=== PATIENT | female | born 1960 | race Two or more races ===

== ENCOUNTER 2023-10-08 06:57 | Day surgery (SDC) | payer OTHER ==
[~2023-10-08] VITALS: Ht 165.1 cm; Wt 72.6 kg
[~2023-10-08 06:57] MED LIST: AMITRIPTYLINE H25 MG PO; B12 ACTIVE1000 MCG PO; CIDAFLEX TABLE1 EACH PO; EVISTA60 MG PO; FOLIC ACID0.8 M1 PO; LEVOTHYROXINE25 MCG PO; MAGNESIUM250 M2 PO; MONTELUKAST SOD10 MG PO; VITAL-D RX TAB1 EACH PO; WELLBUTRIN XL300 MG PO; ZYRTEC10 M3 PO
[2023-10-08] MEDS ORDERED: TRAM1TAB98 PO (15:03)
[2023-10-08] MEDS ORDERED: CEPHALEXIN500 M1 PO (15:03)
== END 2023-10-08 16:45 | disposition home or self-care (01) ==
LOC: CIR.AMB 06:57
PROVIDERS: ATTEND Surgery
DX: R15.9 Full incontinence of feces (principal); I10 Essential (primary) hypertension; Z20.822 Contact with and (suspected) exposure to COVID-19
CPT/HCPCS: 64581; 95972; C1778

== ENCOUNTER 2023-10-20 05:43 | Day surgery (SDC) | payer OTHER ==
[~2023-10-20 05:43] MED LIST changes: +CEPHALEXIN500 M1 PO; +TRAM1TAB98 PO
[2023-10-20] MEDS ORDERED: CEFAZOLIN SODIUM 1,000 MG VIAL ONE (07:21)
[2023-10-20] MEDS ORDERED: POVIDONE-IODINE 118 ML BOTT TOP ONE (07:23)
[2023-10-20] MEDS ORDERED: LIDOCAINE HCL/EPINEPHRINE 20 ML VIAL IJ ONE ×2 (07:23→08:15)
[2023-10-20] MEDS ORDERED: BUPIVACAINE HCL/PF 0.5% 30ML ML ONE (07:23)
[2023-10-20] MEDS ORDERED: CEFAZOLIN SODIUM 1,000 MG in 0.9 % SODIUM CHLORIDE 50 ML IV ONE (08:15)
[2023-10-20] MEDS ORDERED: BUPIVACAINE HCL/PF 0.5% 30ML ML IJ ONE (08:15)
[2023-10-20] MEDS ORDERED: TRAM1TAB98 PO (08:47)
== END 2023-10-20 11:15 | disposition home or self-care (01) ==
LOC: CIR.AMB 05:43
PROVIDERS: ATTEND Surgery
DX: R15.9 Full incontinence of feces (principal); Z20.822 Contact with and (suspected) exposure to COVID-19
CPT/HCPCS: 64590; 95972; C1767